=== PATIENT | female | born 1995 | race Caucasian/White ===

== ENCOUNTER 2019-02-03 11:01 | Observation (INO) | payer OTHER ==
[~2019-02-03] VITALS: Ht 165.1 cm; Wt 55.0 kg
--- NOTE | 2019-02-03 11:30 | NUR ---
performing neuro assessment and pt not answering questions appropriatly. Couldn't tell me the month or year, couldn't tell me her weight. Not obeying commands well. Having trouble staying awake. Pupils fixed. Pt states she can't see anything. Boyfriend states she is usually totally normal and a/o x3. Dr. Lake ruiz. stated to just give pt fluids and monitor her and see how she does.
[2019-02-03] MEDS ORDERED: normal saline 1000ML IV soln IVB ONE (12:05)
[2019-02-03] MEDS ORDERED: MIDAZolam 5mg/ml 2ml vial IV ONE (13:20)
[2019-02-03 13:24] LABS: CLARITY,URINE SLIGHTLY CLOUDY (Clear); COLOR,URINE YELLOW (Yellow); GLUCOSE, URINE NEGATIVE (Neg); KETONES,URINE NEGATIVE (Neg); LEUKOCYTE ESTERASE ,URINE NEGATIVE (Neg); NITRITES, URINE NEGATIVE (Neg); OCCULT BLOOD,URINE SMALL (Neg); PROTEIN,URINE NEGATIVE (Neg); UROBILINOGEN,URINE 0.2 E.U/dL (0.2-1.0)
[2019-02-03 13:27] LABS: URINE HCG NEGATIVE (NEG)
--- NOTE | 2019-02-03 13:27 | NUR ---
provider ordered versed to assist in going to ct. coordinated with ct, will monitor
[2019-02-03 13:28] LABS: UA COLLECTION TYPE URINAL
[2019-02-03 13:31] LABS: MUCUS STRANDS FEW /LPF (Neg); SQUAMOUS EPITHELIAL CELL,UR FEW /LPF (FEW)
[2019-02-03 13:32] LABS: BACTERIA,URINE FEW /HPF (Neg); RBC,URINE 0-2 /HPF (0-2); WBC,URINE 0-4 /HPF (0-4)
[2019-02-03 13:32] LABS: BASOPHILS % (AUTO) 0.2 % (0-1); EOSINOPHILS % (AUTO) 0.3 % (0-6); HEMATOCRIT 39.9 % (35.0-45.0); HEMOGLOBIN 13.7 g/dl (12.0-16.0); LYMPHOCYTES # (AUTO) 0.9 X10'3 (1.1-4.8); LYMPHOCYTES % (AUTO) 8.3 % (21-51); MEAN CORPUSCULAR HEMOGLOBIN 31.6 PG (27.0-31.0); MEAN CORPUSCULAR HGB CONC 34.3 g/dL (33.0-36.5); MEAN CORPUSCULAR VOLUME 92.3 FL (78-98); MEAN PLATELET VOLUME 7.3 FL (7.4-10.4); MONOCYTES # (AUTO) 0.6 X10'3 (0-0.9); MONOCYTES % (AUTO) 5.8 % (2-12); NEUTROPHILS # (AUTO) 9.4 X10'3 (1.8-7.7); NEUTROPHILS % (AUTO) 85.4 % (42-75); PLATELET COUNT 178 X10'3 (140-440); RED BLOOD COUNT 4.32 X10'6 (4.20-5.60); RED CELL DISTRIBUTION WIDTH 12.4 % (11.5-14.5)
[2019-02-03 13:33] LABS: TRANSITIONAL EPI CELLS,URINE FEW /HPF
[2019-02-03 13:44] LABS: URINE AMPHETAMINE SCREEN NEGATIVE (Neg); URINE BARBITUATE SCREEN NEGATIVE (Neg); URINE BENZODIAZEPINES SCREEN NEGATIVE (Neg); URINE CANNABINOID SCREEN POSITIVE (Neg); URINE COCAINE SCREEN NEGATIVE (Neg); URINE METHADONE SCREEN NEGATIVE (Neg); URINE OPIATE SCREEN NEGATIVE (Neg); URINE PHENCYCLIDINE SCREEN NEGATIVE (Neg)
[2019-02-03 13:45] LABS: ALANINE AMINOTRANSFERASE 34 U/L (12-78); ALBUMIN 3.7 G/DL (3.4-5.0); ALBUMIN/GLOBULIN RATIO 1.2 (1.1-1.5); ALKALINE PHOSPHATASE 68 IU/L (46-116); ANION GAP 11 (8-16); ASPARTATE AMINO TRANSFERASE 28 U/L (10-37); BILIRUBIN,TOTAL 0.9 MG/DL (0.1-1.0); BLOOD UREA NITROGEN 9 MG/DL (7-18); BUN/CREATININE RATIO 9.8 (6.6-38.0); CHLORIDE 108 MMOL/L (99-107); CREATININE 0.92 MG/DL (0.40-0.90); GLUCOSE 119 MG/DL (70-104); POTASSIUM 3.6 MMOL/L (3.5-5.1); SODIUM 141 MMOL/L (135-145); TOTAL CARBON DIOXIDE 22.3 MMOL/L (24-32); TOTAL PROTEIN 6.8 G/DL (6.4-8.2); eGFR 74 ML/MIN
[2019-02-03] MEDS ORDERED: etomidate 2mg/ml inj. IV ONE (13:45)
[2019-02-03 13:47] LABS: ETHANOL < 0.010 GM/DL (0.0-0.010)
--- NOTE | 2019-02-03 14:29 | NUR ---
REPORT RECEIVED FROM PAVEL DAVIS: PER SUSAN RN: PATIENT IS STILL "BLIND, PUPILS 3 MM NON REACTIVE" PATIENT SCREAMING AT THIS TIME
[2019-02-03] MEDS ORDERED: LORazepam 2 mg/ml vial IV ONE (14:55)
[2019-02-03] MEDS ORDERED: levetiracetam inj 1,000 MG in normal saline 100ml IV soln 90 ML IV SCH (14:56)
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
[2019-02-03] MEDS ORDERED: mag hydrox/Alum hydrox/simeth 30ml oral suspension PO PRN ×2 (15:20→17:00)
[2019-02-03] MEDS ORDERED: ondansetron/PF 4mg/2ml inj IV PRN ×2 (15:20→17:00)
[2019-02-03] MEDS ORDERED: magnesium hydroxide 30ml (MOM) UD suspension PO PRN ×2 (15:20→17:00)
[2019-02-03] MEDS ORDERED: acetaminophen 325mg tablet PO PRN ×3 (15:20→17:00)
--- NOTE | 2019-02-03 15:25 | NUR ---
BOYFRIEND SPOKE TO PATIENT'S MOTHER ON SPEAKER PHONE AND WHEN I PLACE THE PHONE NEAR HER EAR PATIENT TURNED TOWARD IT AND OPEN HER EYES AND SMILED AND WOULD NOT SPEAK ON THE PHONE. I SPOKE WITH MOTHER OUTSIDE THE ROOM: MOTHER REPORTS A HYPOGYLCEMIC EPISODE WHEN SHE PASSED OUT AND WHEN SHE WAS 6 YEARS OLD SHE PASSED OUT WHILE IN THE OUTFIELD GOING TO CATCH A BALL PLAYING BALL. MOTHER DOES NOT REPORT ANY TONIC CLONIC TYPE SEIZURE ACTIVITY. MOTHER STATES THE PATIENT "PASSED OUT TWICE IN HER LIFE"
--- NOTE | 2019-02-03 15:30 | NUR ---
PATIENT WAS IN SCHOOL IN [place], [place]: [facility] [employer] AND HAD A MAJOR DEPRESSIVE EPISODE DURING WHICH SHE REFUSED MEDICATION AND THE SCHOOL DR MONITORED HER CONDITION: PER SPEAKING WITH HER MOTHER ON THE PHONE
--- NOTE | 2019-02-03 15:45 | NUR ---
PATIENT UP TO BSC WITH STANDBY ASSIST
[2019-02-03] MEDS ORDERED: NORG1TAB12 PO (16:37)
[2019-02-03] MEDS ORDERED: morphine 2 MG/ML inj. syringe IV PRN ×2 (17:00)
--- NOTE | 2019-02-03 17:45 | NUR ---
Patient has just arrived to Ortho/neuro. She is Alert/oriented x1. She did state that she knows she is at the hospital. I completed assessment and have tucked the patient in. I will pass this patient off to the oncoming [facility] shift nurse. The patient's boyfriend is at the bedside. He admits that the patient smokes marijuana and takes control pills. Patient is sleeping and is somewhat difficult to arouse.
[2019-02-03 18:00] VITALS: BP 119/66
--- NOTE | 2019-02-03 18:00 | NUR ---
Dr. Fung is at the bedside and spoke to the patient's boyfriend regarding patient. Patient difficult to arouse and difficult to understand. Dr. Fung is admitting patient for observation for seizure.
--- NOTE | 2019-02-03 18:20 | NUR ---
Problems reprioritized. Patient report given, questions answered & plan of care reviewed with PAVEL Oates.
--- NOTE | 2019-02-03 18:40 | NUR ---
Patient in room ORTHO 4014. I have received report from PAVEL Schaeffer and had the opportunity to ask questions and assume patient care.
--- NOTE | 2019-02-03 19:50 | NUR ---
Pt boyfriend informed nursing staff that patient was awake and in the bathroom. Upon entering pt room after she got back to bed it was noted that her tele box had been removed. Pt and boyfriend were educated that the tele box needed to stay on as it was monitoring the patient. The boyfriend verbalized understanding. Pt was provided with a gown. Pt was very groggy and slow to answer questions but was able to answer all orientation questions correctly, she was unsure as to why she was here in the hospital at this time. Pt was able to follow commands but was slow to do so and need several cues. Pt was observed to safely drink water at this time. Pt and boyfriend were educated that patient need to had head of bed fully up when either drinking or eating to prevent the risk of aspiration at this time. Call light within reach of patient.
[2019-02-03] MEDS: levetiracetam 250mg tablet PO SCH ×2 (20:00→23:51)
--- NOTE | 2019-02-03 21:25 | NUR ---
pt is very sleepy and when awakened was able to answer name and president, but still does not recall events leading up to this admit. When administering medications, she was groggy and continued to be slow to respond with following commands, rolling over and going to sleep, so we will wait to administer medications. continue to monitor.
[2019-02-03 22:00] VITALS: BP 116/73
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
[2019-02-04] MEDS: dextrose 5%-1/2 normal saline 1,000 ML IV SCH ×2 (04:03→04:10)
--- NOTE | 2019-02-04 04:06 | NUR ---
Pt's mother at bedside. Pt awoke and needed to use the bathroom. Pt is alert and oriented x4, talking to her mother, wants to go home now. States, "I feel better now, I don't feel stupid anymore, I felt like I lost all my mental capacity." She is smiling and talking to her mother.
--- NOTE | 2019-02-04 06:41 | NUR ---
REPORT GIVEN TO PAVEL FOX.
[2019-02-04] MEDS ORDERED: LEVE250T PO (08:41)
[2019-02-04] MEDS: levetiracetam 250mg tablet PO SCH (09:42)
== END 2019-02-04 11:05 | disposition home or self-care (01) ==
LOC: ER 11:02 → ED HOLD 15:20 → ORTHO 4S 17:40
PROVIDERS: ADMIT Internal Medicine; ATTEND Internal Medicine
DX: G40.89 Other seizures (principal); R55 Syncope and collapse; F12.90 Cannabis use, unspecified, uncomplicated; Z88.0 Allergy status to penicillin
CPT/HCPCS: 36415; 70450; 80053; 80305; 80320; 81001; 81025; 85025; 87081; 93005; 96361; 96365; 96375; 99284; G0378; J1953; J2060; J2250